=== PATIENT | male | born 1955 | race Caucasian/White ===

== ENCOUNTER 2018-01-03 18:27 | Emergency (ER) | payer OTHER ==
[~2018-01-03] VITALS: Ht 180.3 cm; Wt 79.8 kg
[~2018-01-03 18:27] MED LIST: ATORVASTATIN CA20 MG PO; BAYER PM CAPLE1 EACH PO; EFFIENT10 MG PO; KEFLEX500 MG PO; TRAMADOL-ACETAMI1 EA PO
[2018-01-03] MEDS ORDERED: MORPHINE SULFATE 2 MG/ML SYR IV STA (18:34)
[2018-01-03] MEDS ORDERED: ONDANSETRON HCL INJ 2 MG/ML VIAL IV STA (18:34)
[2018-01-03] MEDS ORDERED: LORAZEPAM INJ 2 MG/ML VIAL IV ONE (18:45)
[2018-01-03] MEDS ORDERED: SODIUM CHLORIDE 0.9% 1000ML 1,000 ML IV SCH (18:45)
[2018-01-03 18:51] LABS: BASOPHILS # (AUTO) 0.1 (0.0-0.1); BASOPHILS % 0.8 % (0.0-1.0); EOSINOPHILS # (AUTO) 0.3 (0.0-0.4); EOSINOPHILS % 3.3 % (0.0-6.0); HEMATOCRIT 43.7 % (38.2-49.6); HEMOGLOBIN 15.4 g/dL (14.0-18.0); LYMPHOCYTES # (AUTO) 1.8 (1.0-3.2); LYMPHOCYTES % 21.6 % (18.0-39.1); MEAN CORPUSCULAR HEMOGLOBIN 35.4 pg (28-32); MEAN CORPUSCULAR HGB CONC 35.2 g/dL (31-35); MEAN CORPUSCULAR VOLUME 100.5 fL (81-99); MONOCYTES # (AUTO) 0.9 (0.2-0.8); MONOCYTES % 10.8 % (4.4-11.3); NEUTROPHILS # (AUTO) 5.3 (2.1-6.9); NEUTROPHILS % 63.1 % (38.7-80.0); PLATELET COUNT 217 x10e3/uL (140-360); RED BLOOD COUNT 4.35 x10e6/uL (4.3-5.7); RED CELL DISTRIBUTION WIDTH 12.8 % (11.7-14.4)
[2018-01-03 18:57] LABS: CLARITY,URINE CLOUDY (CLEAR); COLOR,URINE YELLOW (YELLOW); LEUKOCYTE ESTERASE ,URINE NEGATIVE (NEGATIVE); NITRITE,URINE NEGATIVE (NEGATIVE)
[2018-01-03 18:58] LABS: BILIRUBIN,URINE NEGATIVE (NEGATIVE); KETONES,URINE NEGATIVE (NEGATIVE); PROTEIN,URINE DIPSTICK TRACE (NEGATIVE); URINE UROBILINOGEN 0.2 mg/dL (0.2 - 1)
[2018-01-03 19:13] LABS: ALANINE AMINOTRANSFERASE 48 IU/L (0-55); ALBUMIN 4.2 g/dL (3.5-5.0); ALBUMIN/GLOBULIN RATIO 1.6 (0.8-2.0); ALKALINE PHOSPHATASE 93 IU/L (40-150); BLOOD UREA NITROGEN 18 mg/dL (7-26); BUN/CREATININE RATIO 18 (6-25); CALCIUM 9.9 mg/dL (8.4-10.2); CARBON DIOXIDE 26 mmol/L (22-29); CHLORIDE 106 mmol/L (98-107); CREATININE, SERUM 0.99 mg/dL (0.72-1.25); EST GLOMERULAR FILTRATION RATE > 60 ML/MIN (60-); GLUCOSE 102 mg/dL (74-118); SODIUM 140 mmol/L (136-145)
[2018-01-03 19:15] LABS: EPITHELIAL CELLS,URINE RARE /LPF; RBC,URINE >50 /HPF (0-5)
--- NOTE | 2018-01-03 20:39 | Diagnostic Imaging Report ---
EXAM: CT ABDOMEN/PELVIS WO DATE: 01/03/2018 6:34 PM INDICATION: \S\STONE PROTOCOL/LEFT FLANK \S\[id number] \S\192 COMPARISON: 10/16/2017 TECHNIQUE: The abdomen and pelvis were scanned using a multidetector helical scanner. Coronal and sagittal reformations were obtained. Routine protocol performed. IV Contrast: None ml Isovue 300/370 FINDINGS: Lack of IV contrast decreases sensitivity in evaluating abdominal and pelvic organs. LOWER THORAX: No consolidations LIVER/BILIARY: No masses. No ductal dilatation. GALLBLADDER: Unremarkable SPLEEN: Unremarkable PANCREAS: Unremarkable ADRENALS: No nodules KIDNEYS: Stable subcentimeter exophytic right superior renal hypodensity. There is a 4 mm left UVJ calculus with mild hydroureteronephrosis and perinephric/periureteral inflammatory changes. Two 1-2 mm left inferior renal calculi and other scattered punctate left renal calculi. GI TRACT: No wall thickening or evidence of obstruction. Normal appendix. VESSELS: Moderate atherosclerotic calcifications PERITONEUM/RETROPERITONEUM: No free air or fluid LYMPH NODES: No lymphadenopathy REPRODUCTIVE ORGANS/BLADDER: Mild circumferential bladder wall thickening. BONES: Multilevel degenerative changes. IMPRESSION: 1. Left UVJ calculus (4 mm) with mild hydroureteronephrosis and inflammatory changes. 2. Mild circumferential bladder wall thickening which may be related to underdistention or cystitis. Correlate with urinalysis. Signed by: Dr Marsha Torres MD on 01/03/2018 8:35 PM
== END 2018-01-03 22:11 | disposition home or self-care (01) ==
LOC: ER 18:27
DX: R10.9 Unspecified abdominal pain (principal); R11.0 Nausea; N30.01 Acute cystitis with hematuria; N20.1 Calculus of ureter; I10 Essential (primary) hypertension; E78.5 Hyperlipidemia, unspecified; Z95.5 Presence of coronary angioplasty implant and graft
CPT/HCPCS: 36415; 74176; 80053; 81001; 85025; 99284; J2060; J2270; J2405; J7030

== ENCOUNTER 2019-01-12 17:47 | Observation (INO) | payer OTHER ==
[~2019-01-12] VITALS: Ht 181.6 cm; Wt 76.7 kg
--- OUTSIDE RECORDS SUMMARY | 2019-01-12 17:52 | XMS REPORT | Continuity of Care Document ---
Author Author [facility] Interface Address Unknown Phone Unavailable Problems Problem Status Onset Date Classification Date Reported Comments Source Wheezing 11/03/2018 Diagnosis 11/04/2018 [facility] Lower respiratory tract infection 11/03/2018 Diagnosis 11/04/2018 [facility] Elevated blood-pressure reading without diagnosis of hypertension 11/03/2018 Diagnosis 11/04/2018 [facility] Body mass index 25-29 - overweight 11/03/2018 Diagnosis 11/04/2018 [facility] Immunization due 11/03/2018 Diagnosis 11/04/2018 [facility] Smoker 11/03/2018 Diagnosis 11/04/2018 [facility] Feeling feverish 11/03/2018 Diagnosis 11/04/2018 [facility] Ureteral stone Active 10/17/2015 Problem 01/04/2018 [facility] Chest pain Active 06/18/2014 Problem 01/04/2018 [facility] Medications Medication Details Route Status Patient Instructions Ordering Provider Order Date Source Prasugrel Hcl (Effient) 10 Mg Tablet, 10 Mg Oral Daily Active 03/04/2017 [facility] Tramadol/Acetaminophen (Tramadol-Acetaminophn 37.5-325) 1 Ea Tab, 1 Tab Oral As Needed for Bladder Spasms Active Omid 10/18/2015 [facility] Aspirin/Diphenhydramine Citrat (Jahaira Pm Caplet) 1 Each Tablet Daily Active [facility] Atorvastatin Calcium 20 Mg Tablet Daily Active [facility] 200 ACTUAT Albuterol 0.09 MG/ACTUAT Metered Dose Inhaler albuterol sulfate HFA 90 mcg/actuation aerosol inhaler Inhale 2 puffs every 4 hours by inhalation route as needed. Active [facility] Aspir-81 Aspir-81 Active [facility] atorvastatin 80 MG Oral Tablet atorvastatin 80 mg tablet Active [facility] Azithromycin 250 MG Oral Tablet azithromycin 250 mg tablet TAKE 2 TABLETS (500 MG) BY ORAL ROUTE ONCE DAILY FOR 1 DAY THEN 1 TABLET (250 MG) BY ORAL ROUTE ONCE DAILY FOR 4 DAYS Active [facility] benzonatate 200 MG Oral Capsule benzonatate 200 mg capsule Take 1 capsule 3 times a day by oral route as needed. Active [facility] Metoprolol Tartrate 25 MG Oral Tablet metoprolol tartrate 25 mg tablet TK 1/2 T PO QD Active [facility] Allergies, Adverse Reactions, Alerts Substance Category Reaction Severity Reaction type Status Date Reported Comments Source Immunizations Immunization Date Given Site Status Last Updated Comments Source Results Order Name Results Value Reference Range Date Interpretation Comments Source PEF 250 11/03/2018 [facility] Percent Predicted Value 34 % 11/03/2018 [facility] Influenza A negative 11/03/2018 [facility] Influenza B negative 11/03/2018 [facility] Automated blood basophil count (count/volume) Automated blood basophil count (count/volume) 0.1 0.0 - 0.1 01/03/2018 [facility] Automated blood basophil count as percentage of total leukocytes Automated blood basophil count as percentage of total leukocytes 0.8 0.0 - 1.0 01/03/2018 [facility] Automated blood eosinophil count Automated blood eosinophil count 0.3 0.0 - 0.4 01/03/2018 [facility] Automated blood eosinophil count as percentage of total leukocytes Automated blood eosinophil count as percentage of total leukocytes 3.3 0.0 - 6.0 01/03/2018 [facility] Automated blood hematocrit (volume fraction) Automated blood hematocrit (volume fraction) 43.7 38.2 - 49.6 01/03/2018 [facility] Automated blood lymphocyte count as percentage ot total leukocytes Automated blood lymphocyte count as percentage ot total leukocytes 21.6 18.0 - 39.1 01/03/2018 [facility] Automated blood monocyte count as percentage of total leukocytes Automated blood monocyte count as percentage of total leukocytes 10.8 4.4 - 11.3 01/03/2018 [facility] Automated blood neutrophil count Automated blood neutrophil count 5.3 2.1 - 6.9 01/03/2018 [facility] Automated blood platelet count (count/volume) Automated blood platelet count (count/volume) 217 140 - 360 01/03/2018 [facility] Automated blood segmented neutrophil count as percentage of total leukocytes Automated blood segmented neutrophil count as percentage of total leukocytes 63.1 38.7 - 80.0 01/03/2018 [facility] Automated erythrocyte mean corpuscular hemoglobin (mass per erythrocyte) Automated erythrocyte mean corpuscular hemoglobin (mass per erythrocyte) 35.4 28 - 32 01/03/2018 [facility] Automated erythrocyte mean corpuscular hemoglobin concentration measurement (mass/volume) Automated erythrocyte mean corpuscular hemoglobin concentration measurement (mass/volume) 35.2 31 - 35 01/03/2018 [facility] Automated erythrocyte mean corpuscular volume Automated erythrocyte mean corpuscular volume 100.5 81 - 99 01/03/2018 [facility] Automated urine sediment leukocyte count by microscopy (number/high power field) Automated urine sediment leukocyte count by microscopy (number/high power field) NONE 0 - 5 01/03/2018 [facility] Bacteria detection in urine sediment by light microscopy Bacteria detection in urine sediment by light microscopy NONE NONE 01/03/2018 [facility] Blood erythrocytes automated count (number/volume) Blood erythrocytes automated count (number/volume) 4.35 4.3 - 5.7 01/03/2018 [facility] Blood hemoglobin measurement (moles/volume) Blood hemoglobin measurement (moles/volume) 15.4 14.0 - 18.0 01/03/2018 [facility] Blood leukocytes automated count (number/volume) Blood leukocytes automated count (number/volume) 8.39 4.8 - 10.8 01/03/2018 [facility] Blood lymphocytes count (number/volume) Blood lymphocytes count (number/volume) 1.8 1.0 - 3.2 01/03/2018 [facility] Blood monocytes automated count (number/volume) Blood monocytes automated count (number/volume) 0.9 0.2 - 0.8 01/03/2018 [facility] Epithelial cells detection in urine sediment by light microscopy Epithelial cells detection in urine sediment by light microscopy RARE NONE 01/03/2018 [facility] Erythrocytes detection in urine sediment by light microscopy Erythrocytes detection in urine sediment by light microscopy null 0 - 5 01/03/2018 [facility] Estimated glomerular filtration rate (GFR) determination Estimated glomerular filtration rate (GFR) determination null 60 01/03/2018 [facility] Glucose measurement Glucose measurement 102 74 - 118 01/03/2018 [facility] Plasma globulin measurement (mass/volume) Plasma globulin measurement (mass/volume) 2.7 2.3 - 3.5 01/03/2018 [facility] Serum or plasma alanine aminotransferase measurement (enzymatic activity/volume) Serum or plasma alanine aminotransferase measurement (enzymatic activity/volume) 48 0 - 55 01/03/2018 [facility] Serum or plasma albumin measurement (mass/volume) Serum or plasma albumin measurement (mass/volume) 4.2 3.5 - 5.0 01/03/2018 [facility] Serum or plasma albumin/globulin mass ratio Serum or plasma albumin/globulin mass ratio 1.6 0.8 - 2.0 01/03/2018 [facility] Serum or plasma alkaline phosphatase measurement (enzymatic activity/volume) Serum or plasma alkaline phosphatase measurement (enzymatic activity/volume) 93 40 - 150 01/03/2018 [facility] Serum or plasma anion gap Serum or plasma anion gap 12.0 8 - 16 01/03/2018 [facility] Serum or plasma calcium measurement (mass/volume) Serum or plasma calcium measurement (mass/volume) 9.9 8.4 - 10.2 01/03/2018 [facility] Serum or plasma carbon dioxide, total measurement (moles/volume) Serum or plasma carbon dioxide, total measurement (moles/volume) 26 22 - 29 01/03/2018 [facility] Serum or plasma chloride measurement (moles/volume) Serum or plasma chloride measurement (moles/volume) 106 98 - 107 01/03/2018 [facility] Serum or plasma creatinine measurement (mass/volume) Serum or plasma creatinine measurement (mass/volume) 0.99 0.72 - 1.25 01/03/2018 [facility] Serum or plasma potassium measurement (moles/volume) Serum or plasma potassium measurement (moles/volume) 4.0 3.5 - 5.1 01/03/2018 [facility] Serum or plasma protein measurement (mass/volume) Serum or plasma protein measurement (mass/volume) 6.9 6.5 - 8.1 01/03/2018 [facility] Serum or plasma sodium measurement (moles/volume) Serum or plasma sodium measurement (moles/volume) 140 136 - 145 01/03/2018 [facility] Serum or plasma total bilirubin measurement (mass/volume) Serum or plasma total bilirubin measurement (mass/volume) 0.7 0.2 - 1.2 01/03/2018 [facility] Serum or plasma urea nitrogen measurement (mass/volume) Serum or plasma urea nitrogen measurement (mass/volume) 18 7 - 26 01/03/2018 [facility] Serum or plasma urea nitrogen/creatinine mass ratio Serum or plasma urea nitrogen/creatinine mass ratio 18 6 - 25 01/03/2018 [facility] Specific gravity of Urine by Test strip Specific gravity of Urine by Test strip 1.025 1.010 - 1.025 01/03/2018 [facility] Urine clarity Urine clarity CLOUDY CLEAR 01/03/2018 [facility] Urine color determination Urine color determination YELLOW YELLOW 01/03/2018 [facility] Urine erythrocytes detection Urine erythrocytes detection 4+ NEGATIVE 01/03/2018 [facility] Urine glucose detection Urine glucose detection NEGATIVE NEGATIVE 01/03/2018 [facility] Urine ketones detection by automated test strip Urine ketones detection by automated test strip NEGATIVE NEGATIVE 01/03/2018 [facility] Urine leukocyte esterase detection by dipstick Urine leukocyte esterase detection by dipstick NEGATIVE NEGATIVE 01/03/2018 [facility] Urine nitrite detection Urine nitrite detection NEGATIVE NEGATIVE 01/03/2018 [facility] Urine pH measurement by automated test strip Urine pH measurement by automated test strip 6 5 - 7 01/03/2018 [facility] Urine protein measurement by test strip (mass/volume) Urine protein measurement by test strip (mass/volume) TRACE NEGATIVE 01/03/2018 [facility] Urine total bilirubin measurement (mass/volume) Urine total bilirubin measurement (mass/volume) NEGATIVE NEGATIVE 01/03/2018 [facility] Urine urobilinogen measurement by test strip (mass/volume) Urine urobilinogen measurement by test strip (mass/volume) 0.2 0.2 - 1 01/03/2018 [facility] Red Cell Distribution Width 12.8 11.7 - 14.4 01/03/2018 [facility] IM GRANULOCYTES % 0.4 0.0 - 1.0 01/03/2018 [facility] Absolute Immature Granulocyte (auto 0.03 0 - 0.1 01/03/2018 [facility] Aspartate Amino Transf (AST/SGOT) 33 5 - 34 01/03/2018 [facility] Vital Signs Vital Sign Value Date Comments Source Diastolic (mm Hg) 86 11/03/2018 [facility] Height 71 11/03/2018 [facility] Systolic (mm Hg) 120 11/03/2018 [facility] Weight 185 11/03/2018 [facility] Encounters Location Location Details Encounter Type Encounter Number Reason For Visit Attending Provider ADM Date DC Date Status Source Departed Emergency Room [id number] LILLIE SOUTH MD 01/03/2018 01/03/2018 [facility] [place] - [facility] - [id number] Caicedo-C: [address] [place] [address], Ph. [id number] [facility] 11/03/2018 [facility] [place] [facility] - [id number] Caicedo-C: [address] [place] [address], Ph. [id number] [facility] 11/03/2018 [facility] [place] [facility] - [id number] Sarah Lai, GEODETIC SURVEYOR TECHNOLOGIST-C: [address] [facility] [place] [address], Ph. [id number] [facility] 11/03/2018 [facility] [place] [facility] - [id number] Armida Rodriguez, GEODETIC SURVEYOR TECHNOLOGIST-C: [address] [place] [address], Ph. [phone] [id number] [facility] 11/03/2018 [facility] Procedures Procedure Code Date Perfomer Comments Source CT of abdomen and pelvis without contrast [id number] 01/03/2018 [facility] Procedure on Heart [facility]
--- OUTSIDE RECORDS SUMMARY | 2019-01-12 17:52 | XMS REPORT ---
Author Author [facility] Address Unknown Phone Unavailable Care Team Providers Care Fourdrinier Wire Weaver Name Role Phone Avtar SOUTH Unavailable Unavailable Problems This patient has no known problems. Allergies, Adverse Reactions, Alerts This patient has no known allergies or adverse reactions. Medications This patient has no known medications. Results Test Description Test Time Test Comments Text Results Atomic Results Result Comments CT ABDOMEN/PELVIS WO [place] [address] Patient Name: CAIT WOODWARD MR #: [id number] : 1955 Age/Sex: 62/M Req #: [id number] Adm Physician: Ordered by: NARCISO PENDLETON MD Report #: [id number] Location: ER Room/Bed: Procedure: [id number] CT/CT ABDOMEN/PELVIS WO Exam Date: 01/03/18 Exam Time: 1923 REPORT STATUS: Signed EXAM: CT ABDOMEN/PELVIS WO DATE: 01/03/2018 6:34 PM INDICATION: S STONE PROTOCOL/LEFT FLANK S [id number] S 1923 COMPARISON: 10/16/2017 TECHNIQUE: The abdomen and pelvis were scanned using a multidetector helical scanner. Coronal and sagittal reformations were obtained. Routine protocol performed. IV Contrast: None ml Isovue 300/370 FINDINGS: Lack of IV contrast decreases sensitivity in evaluating abdominal and pelvic organs. LOWER THORAX: No consolidations LIVER/BILIARY: No masses. No ductal dilatation. GALLBLADDER: Unremarkable SPLEEN: Unremarkable PANCREAS: Unremarkable ADRENALS: No nodules KIDNEYS: Stable subcentimeter exophytic right superior renal hypodensity. There is a 4 mm left UVJ calculus with mild hydroureteronephrosis and perinephric/periureteral inflammatory changes. Two 1-2 mm left inferior renal calculi and other scattered punctate left renal calculi. GI TRACT: No wall thickening or evidence of obstruction. Normal appendix. VESSELS: Moderate atherosclerotic calcifications PERITONEUM/RETROPERITONEUM: No free air or fluid LYMPH NODES: No lymphadenopathy REPRODUCTIVE ORGANS/BLADDER: Mild circumferential bladder wall thickening. BONES: Multilevel degenerative changes. IMPRESSION: 1. Left UVJ calculus (4 mm) with mild hydroureteronephrosis and inflammatory changes. 2. Mild circumferential bladder wall thickening which may be related to underdistention or cystitis. Correlate with urinalysis. Signed by: Dr Jovany Torres MD on 01/03/2018 8:35 PM Dictated By: JOVANY TORRES MD 34 Transcribed By: ENEDINA on 01/03/182034 COPY TO: NARCISO PENDLETON MD
--- OUTSIDE RECORDS SUMMARY | 2019-01-12 17:52 | XMS REPORT | Encounter Summary ---
Author Organization Unknown Address [address] [place] [address] Phone [phone] Reason for Visit Medical Complaint Instructions None recorded. Discussion Note: None recorded. Patient educational handouts: No information available. Plan of Care Reminders Provider Appointments None recorded. Lab None recorded. Referral None recorded. Procedures None recorded. Surgeries None recorded. Imaging None recorded. Medications Name Start Date albuterol sulfate HFA 90 mcg/actuation aerosol inhaler Inhale 2 puffs every 4 hours by inhalation route as needed. Aspir-81 atorvastatin 80 mg tablet azithromycin 250 mg tablet TAKE 2 TABLETS (500 MG) BY ORAL ROUTE ONCE DAILY FOR 1 DAY THEN 1 TABLET (250 MG) BY ORAL ROUTE ONCE DAILY FOR 4 DAYS benzonatate 200 mg capsule Take 1 capsule 3 times a day by oral route as needed. metoprolol tartrate 25 mg tablet TK 1/2 T PO QD Medications Administered None recorded. Vitals None recorded. Lab Results Date Name Specimen Result Interpretation Description Value Range Status Address Peak Flow Pef 250 [facility]: [address] [place] [address] Percent Predicted Value 34% [facility]: [address] [place] [address] Rapid Flu (A+B) Influenza a negative [facility]: [address] [place] [address] Influenza B negative [facility]: [address] [place] [address] Allergies Code Code System Name Reaction Severity Status Onset NKDA Problems No Known Problems Procedures Date Name Performed by Procedure on Heart Information not available Vaccine List None recorded. Social History Smoking Status Current Some Day Smoker Past Encounters 11/03/2018 Lower Respiratory Tract Infection; Wheezing; Feeling Feverish; Smoker; Elevated Blood-pressure Reading without Diagnosis of Hypertension; Body Mass Index 25-29 - Overweight; Immunization Due [facility]: [address] [place] [address], Ph. 11/03/2018 [facility]: [address] [place] [address], Ph. History of Present Illness None recorded. Review of Systems Basic Reported By: Patient Physical Exam Adult Basic, Adult Male Complete Reported By: Patient
--- OUTSIDE RECORDS SUMMARY | 2019-01-12 17:52 | XMS REPORT | Encounter Summary ---
Author Organization Unknown Address [address] [place] [id number] Phone [phone] Reason for Visit Medical Complaint Instructions 1. Lower respiratory tract infection azithromycin 250 mg tablet benzonatate 200 mg capsule 2. Wheezing albuterol sulfate HFA 90 mcg/actuation aerosol inhaler wheezing or bronchoconstriction: care instructions peak flow 3. Feeling feverish rapid flu (A+B) 4. Smoker stopping smoking: care instructions 5. Elevated blood-pressure reading without diagnosis of hypertension elevated blood pressure: care instructions 6. Body mass index 25-29 - overweight A healthy lifestyle: care instructions 7. Immunization due Discussion Note: None recorded. Plan of Care Patient Instructions See care instructions provided. Reminders Provider Appointments None recorded. Lab Rapid Flu (A+B) 11/03/2018 [facility] Referral None recorded. Procedures None recorded. Surgeries [...] PO QD Medications Administered None recorded. Vitals Height Weight BMI Blood Pressure 5 ft 11 in 185 lbs 25.8 kg/m2 120/86 mm[Hg] Lab Results Date Name Specimen Result Interpretation Description Value Range Status Address Peak Flow Pef 250 [facility]: [address] [place] [address] Percent Predicted Value 34% [facility]: [address] [place] [address] Rapid Flu (A+B) Influenza a negative [facility]: [address] [place] [address] Influenza B negative [facility]: [address] [place] [address] Allergies Code Code System Name Reaction Severity Status Onset NKDA Problems No Known Problems Procedures Date Name Performed by Procedure on Heart Information not available Vaccine List None recorded. Social History Smoking Status Current Some Day Smoker Past Encounters 11/03/2018 Lower Respiratory Tract Infection; Wheezing; Feeling Feverish; Smoker; Elevated Blood-pressure Reading without Diagnosis of Hypertension; Body Mass Index 25-29 - Overweight; Immunization Due Armida Rodriguez [facility]: [address] [place] [address], Ph. 11/03/2018 Armida Rodriguez [facility]: [address] [place] [address], Ph. History of Present Illness [id number] Reported By: Patient HPI: Location: head/sinuses, chest. Quality: productive cough, nasal/sinus congestion, dry cough. Duration: 2days. Context: no sick contacts, no foreign travel, non- smoker. Associated Symptoms: no sputum production, no shortness of breath, no change in number of pillows needed to sleep at night, no sweats, no significant weight gain, no significant weight loss, no morning cough, no sore throat, no vomiting, no diarrhea, no rash, no nausea, no fever, no muscle aches, no headache, wheezing Review of Systems:ROS as noted in the HPI Review of Systems Basic Reported By: Patient Physical Exam Adult Basic, Adult Male Complete Reported By: Patient Constitutional: General Appearance: healthy-appearing, well-nourished, well-developed, overweight. Level of Distress: NAD. Ambulation: ambulating normally Psychiatric: Mental Status: active and alert. Orientation: to time, to place, to person Eyes: Lids and Conjunctivae: non-injected, no discharge, no pallor Hzf-Emtf-Rqwev-Throat: Ears: no lesions on external ear, no outer ear tenderness, EACs clear, TM opacified. Hearing: no hearing loss. Nose: no lesions on external nose, nares patent, no septal deviation, nasal passages clear, no sinus tenderness, nasal discharge--rhinorrhea, post nasal drip. Lips, Teeth, and Gums: no mouth or lip ulcers, no bleeding gums, normal dentition. Oropharynx: moist mucous membranes, no erythema, no exudates, tonsils not enlarged Lungs: Respiratory effort: no dyspnea, no tachypnea, no use of accessory muscles, no intercostal retractions. Auscultation: expiratory wheezing Cardiovascular: Heart Auscultation: RRR, no murmurs
[2019-01-12 18:37] LABS: BILIRUBIN,URINE NEGATIVE (NEGATIVE); CLARITY,URINE SL CLOUDY (CLEAR); COLOR,URINE YELLOW (YELLOW); KETONES,URINE NEGATIVE (NEGATIVE); LEUKOCYTE ESTERASE ,URINE NEGATIVE (NEGATIVE); NITRITE,URINE NEGATIVE (NEGATIVE); PROTEIN,URINE DIPSTICK TRACE (NEGATIVE); URINE UROBILINOGEN 0.2 mg/dL (0.2 - 1)
[2019-01-12 18:48] LABS: WBC,URINE (MAN) >50 /HPF (0-5)
[2019-01-12 18:49] LABS: BACTERIA,URINE MANY /HPF; EPITHELIAL CELLS,URINE MODERATE /LPF; RBC,URINE >50 /HPF (0-5)
[2019-01-12] MEDS ORDERED: ATORVASTATIN CA80 MG PO (19:07)
[2019-01-12] MEDS ORDERED: LOPRESSOR25 MG PO (19:07)
--- NOTE | 2019-01-12 19:19 | Diagnostic Imaging Report ---
EXAM: CT of the abdomen and pelvis WITHOUT contrast HISTORY: lft flank pain KSP, left lower abdominal pain, history of kidney stones COMPARISON: CT abdomen and pelvis January 03, 2018 TECHNIQUE: The abdomen and pelvis were scanned utilizing a multidetector helical scanner. Coronal and sagittal reformats are available. PROTOCOL: Renal colic IV CONTRAST: None, which limits sensitivity and specificity of evaluation of the soft tissues and vascular structures. ORAL CONTRAST: None, which limits sensitivity and specificity of evaluation of the bowel. RADIATION DOSE: Total DLP: 375.15 mGy*cm Estimated effective dose: (DLP x 0.015 x size factor) Dose modulation, iterative reconstruction, and/or weight based adjustment of the mA/kV was utilized to reduce the radiation dose to as low as reasonably achievable. COMPLICATIONS: None FINDINGS: LOWER THORAX: Unremarkable. HEPATOBILIARY: No definite focal hepatic lesions. No biliary ductal dilatation. The gallbladder is unremarkable. SPLEEN: No splenomegaly. PANCREAS: No focal masses or ductal dilatation. ADRENALS: No adrenal nodule. KIDNEYS/URETERS: Right: * No hydronephrosis. * A 2 mm calcified stone near the inferior pole. Left: * A punctate nonobstructing calcification at the interpolar region. * A 4 mm nonobstructing calcification near the inferior pole. * A 3 mm nonspecific calcification near the inferior pole. * Mild hydroureteronephrosis to the level of the pelvic inlet with a 7 mm obstructing stone. PELVIC ORGANS/BLADDER: The visualized pelvic organs appear unremarkable. PERITONEUM / RETROPERITONEUM: No free air or fluid. GI TRACT: On limited evaluation of the gastrointestinal tract, no dilation or wall thickening identified. The appendix appears normal. The stomach is decompressed, which limits evaluation. LYMPH NODES: No pathologically enlarged lymph nodes. VESSELS: Diffuse scattered atherosclerotic vascular calcifications. BONES: No aggressive osseous lesion or acute fracture. Stable 7 mm nonaggressive chronic density in the left femoral head, compatible with a bone island. Scattered degenerative changes. SOFT TISSUES: Unremarkable. IMPRESSION: 1. A 7 mm left ureteral stone resulting in mild hydroureteronephrosis. 2. Bilateral nonobstructing subcentimeter renal calculi. Signed by: Dr. Blayne Sharif D.O., M.M.M. on 01/12/2019 7:16 PM
[2019-01-12] MEDS ORDERED: ASPIRIN325 MG PO (20:05)
[2019-01-12] MEDS ORDERED: SODIUM CHLORIDE FLUSH 10 ML SYR INJ PRN (20:15)
[2019-01-12] MEDS ORDERED: CEFTRIAXONE SOD 1 GM/NS 50 ML 50 ML IV SCH (20:15)
[2019-01-12 20:18] LABS: BASOPHILS % 0.4 % (0.0-1.0); EOSINOPHILS # (AUTO) 0.3 (0.0-0.4); EOSINOPHILS % 2.5 % (0.0-6.0); HEMATOCRIT 42.8 % (38.2-49.6); HEMOGLOBIN 15.2 g/dL (14.0-18.0); LYMPHOCYTES # (AUTO) 1.7 (1.0-3.2); LYMPHOCYTES % 15.4 % (18.0-39.1); MEAN CORPUSCULAR HEMOGLOBIN 35.8 pg (28-32); MEAN CORPUSCULAR HGB CONC 35.5 g/dL (31-35); MEAN CORPUSCULAR VOLUME 100.7 fL (81-99); MONOCYTES # (AUTO) 1.2 (0.2-0.8); NEUTROPHILS # (AUTO) 7.5 (2.1-6.9); NEUTROPHILS % 70.4 % (38.7-80.0); PLATELET COUNT 219 x10e3/uL (140-360); RED BLOOD COUNT 4.25 x10e6/uL (4.3-5.7); RED CELL DISTRIBUTION WIDTH 12.9 % (11.7-14.4)
[2019-01-12 20:30] LABS: ANION GAP 10.8 mmol/L (8-16); BLOOD UREA NITROGEN 18 mg/dL (7-26); BUN/CREATININE RATIO 19 (6-25); CALCIUM 9.7 mg/dL (8.4-10.2); CARBON DIOXIDE 27 mmol/L (22-29); CHLORIDE 102 mmol/L (98-107); CREATININE, SERUM 0.97 mg/dL (0.72-1.25); EST GLOMERULAR FILTRATION RATE > 60 ML/MIN (60-); GLUCOSE 87 mg/dL (74-118); POTASSIUM 3.8 mmol/L (3.5-5.1); SODIUM 136 mmol/L (136-145)
[2019-01-12] MEDS: HYDROMORPHONE 2MG/ML 2 MG/ML ML IV PRN (21:44)
[2019-01-12] MEDS: ONDANSETRON HCL INJ 2MG/ML 2ML 2 MG/ML VIAL IV PRN (21:45)
[2019-01-13] VITALS (8 sets, daily range): BP systolic 118–135; BP diastolic 65–73
--- NOTE | 2019-01-13 01:31 | NUR ---
PATIENT RECEIVED FROM EMERGENCY DEPARTMENT PER STRETCHER AT 0108. HE'S ALERT AND ORIENTED X3, WHEEZING HEARD ON LUNG SOUND. HE C/O MILD PAIN BUT REFUSED PAIN MEDICATION WHEN OFFER. NO EDEMA NOTED TO THE EXTREMITIES, SMALL RED AREA NOTED TO THE LEFT LEG. PATIENT ORIENTED TO SURROUNDINGS, CALL LIGHT WITHIN EASY REACH AND HE'S INSTRUCTED TO NOTIFY THE NURSE REGARDING PAIN MANAGEMENT.
--- NOTE | 2019-01-13 04:48 | NUR ---
PATIENT IS SOUNDLY ASLEEP, NO DISTRESS OBSERVED. CALL LIGHT WITHIN EASY REACH, HE'S INSTRUCTED TO CALL FOR ASSISTANCE NEEDED.
[2019-01-13] MEDS ORDERED: DEXTROSE 5%/0.45% SOD CHL 1,000 ML IV ONE ×2 (07:45→18:00)
[2019-01-13] MEDS ORDERED: CEFAZOLIN SOD 1 GM/NS 50ML 50 ML IV SCH (08:00)
--- NOTE | 2019-01-13 08:14 | NUR ---
Patient resting in bed, Alert with no distress, Dr Rebecca Anne had rounds, consent signed for procedure by patient
[2019-01-13] MEDS: CEFTRIAXONE SOD 1 GM/NS 50 ML 50 ML IV SCH ×2 (08:34→21:00)
--- NOTE | 2019-01-13 13:20 | NUR ---
patient off the unit for procedure
[2019-01-13] MEDS ORDERED: FENTANYL CITRATE/PF 100MCG/2 ML INJ ONE (13:47)
[2019-01-13] MEDS ORDERED: MIDAZOLAM HCL 2 MG/2 ML VIAL ONE (13:47)
[2019-01-13] MEDS ORDERED: ACETAMINOPHEN 325 MG TAB PO PRN (14:30)
--- NOTE | 2019-01-13 15:26 | Consultation ---
DATE OF CONSULTATION: 01/13/2019 REASON FOR CONSULTATION: Renal calculi. HISTORY: This is a 63-year-old male, well known to me who had a stone removed in 2016. At that time, it was the only stone present in the kidney. He states that over the last three days, he has had pain on the left flank radiating to the left lower quadrant, but over the last 24 hours, the pain has not progressing. They had gotten worse. He had developed nausea and has not vomited and came to the emergency room where a CT scan shows that he got a 7 mm stone in the two pelvis by S1, L5. This is causing moderate degree of hydroureteronephrosis, but the pain is severe and I discussed with the patient that the stone is 7 mm in size pass 12% to 14% of the time and we do not know how long it would take for that stone to pass. Therefore, the patient has opted to have treatment like he had back in 2016. MEDICAL HISTORY: High blood pressure. High cholesterol. PAST SURGICAL HISTORY: Essentially ureteroscopy in 2016. History of kidney stones. SOCIAL HISTORY: , sexually active. MEDICATIONS: Propranolol and simvastatin. Urological examination, bilateral descended testicles. No hernias. Prostate approximately 25 g to 30 g, soft. No inguinal hernias are palpable. The patient did have pain on the left flank radiating to the area of the left lower quadrant. IMPRESSION: A 7 mm stones in the left ureter at L5, S1, left side, and multiple other stones, two on the left and one on the right that are 1-3 mm. RECOMMENDATION: The patient and I agreed to do a cystoscopy and placement of double-J, possible ureteroscopy, laser lithotripsy and stone extraction. He has had these treatment before. Understands the complications and the outcome. MD INGRID Snell/MODL /[id number]
[2019-01-13] MEDS ORDERED: IOPAMIDOL 610MG/1ML 300 MG/ML VIAL IV ONE (16:35)
[2019-01-13] MEDS ORDERED: BELLADONNA/OPIUM 60 MG SUPP PR ONE (16:35)
[2019-01-13] MEDS ORDERED: KETOROLAC TROMETHAMINE 30 MG/ML VIAL IM PRN (18:00)
[2019-01-13] MEDS ORDERED: SEVOFLURANE INHAL SOLN 250 ML PEN BTL ONE (18:18)
[2019-01-13] MEDS ORDERED: NEOSTIGMINE 5 MG/5ML SYR ONE (18:18)
[2019-01-13] MEDS ORDERED: ONDANSETRON HCL INJ 2MG/ML 2ML 2 MG/ML VIAL ONE (18:18)
[2019-01-13] MEDS ORDERED: LIDOCAINE HCL 2% LOCAL INJ 5 ML SDV VIAL INJ ONE (18:18)
[2019-01-13] MEDS ORDERED: DEXAMETHASONE SOD PHOS INJ 4 MG/ML VIAL ONE (18:18)
[2019-01-13] MEDS ORDERED: ROCURONIUM BROMIDE 10 MG/ML 5ML VIAL ONE (18:18)
[2019-01-13] MEDS ORDERED: GLYCOPYRROLATE INJ 1MG/ 5 ML SYR ONE (18:18)
[2019-01-13] MEDS ORDERED: PROPOFOL IV EMULSION 10 MG/ML 20 ML VIAL ONE (18:18)
--- NOTE | 2019-01-13 19:15 | NUR ---
received report from day nurse. patient is resting comfortably in bed. denies pain or discomfort. bed is in lowest position and call griggs is within reach. will continue to monitor patient.
[2019-01-13] MEDS ORDERED: SODIUM CHLORIDE 0.9% 250ML 0 ML ONE (19:48)
--- NOTE | 2019-01-13 22:22 | History and Physical ---
CHIEF COMPLAINT: Left flank pain. HISTORY OF PRESENT ILLNESS: A 63-year-old male with known history of nephrolithiasis in the past. He has been following up with Dr. Anne, Urology in the past, now presents with left-sided flank pain, it began yesterday. He denies any hematuria or dysuria. The patient came into the ED due to worsening pain. No fever at home, chest pain, or palpitations. While here, imaging study was consistent with a 7 mm left ureteral stone with mild hydroureteronephrosis seen. The patient was seen and evaluated at bedside on the medical floor. Currently, he is doing well with no other complaints. He is scheduled for later today to have cystoscopy with possible stone retrieval or lithotripsy and possibly stent placement. REVIEW OF SYSTEMS: Pertinent positives: Left flank pain. Pertinent negatives: Denies any chest pain, palpitation, nausea, vomiting, diarrhea, dysuria, hematuria, frequency, urgency, lightheadedness, dizziness, abdominal pain, headaches, shortness of breath, cough, congestion, fever, or any other complaints. The rest of 14-point review of systems have been reviewed with the patient and are negative. ALLERGIES: HOME MEDICATIONS: 1. Aspirin 325 mg one tablet p.o. daily. 2. Lipitor 80 mg daily. 3. Metoprolol 12.5 mg daily. PAST MEDICAL HISTORY: Hypertension and history of nephrolithiasis. PAST SURGICAL HISTORY: Had cystoscopies in the past due to renal stones. FAMILY HISTORY: Hypertension and diabetes. SOCIAL HISTORY: No drugs. No alcohol. Does not smoke. Good social support. LAB FINDINGS: Show white count 10.6, hemoglobin is 15.2, hematocrit is 42, and platelets of 219. Chemistry; sodium 133, potassium 3.8, chloride 103, bicarb 27, anion gap of 10, BUN is 18, creatinine 0.97, glucose 87, calcium 9.7. Urinalysis showed evidence of rbc's greater than 50 and wbc's greater than 50. Microbiology, urine culture still pending. IMAGING STUDIES: CT of the abdomen and pelvis consistent with a 7 mm left ureteral stone resulting in mild hydroureteronephrosis. Bilateral nonobstructing subcentimeter renal calculi. PHYSICAL EXAMINATION: VITAL SIGNS: Temperature is 97.3, pulse 60, respiratory rate is 19, blood pressure 123/64, and pulse ox 94% on room air. GENERAL: No acute distress. Alert and oriented x3. Cooperative on examination. HEENT: Head is normocephalic and atraumatic. Eyes; pupils are equal, round, and reactive to light bilaterally. Extraocular movements are intact bilaterally. No evidence of erythema or exudates in the posterior pharynx. Has poor dentition. NECK: Supple. Good range of motion throughout. PULMONARY: Clear to auscultation bilaterally. No wheezing, no rales, no rhonchi, and no crackles appreciated. CARDIOVASCULAR: Positive S1, S2. No murmurs, rubs, or gallops appreciated. ABDOMEN: Soft, nondistended, and nontender to palpation. Bowel sounds present. MUSCULOSKELETAL: Strength is 5/5 throughout. No evidence of any muscle deficits on examination. No weakness appreciated. NEUROLOGICAL: Cranial nerves II through XII grossly intact. No evidence of any neurological deficits on exam. SKIN: Intact. Warm to touch. Good cap refill. PSYCHIATRIC: Normal affect and mood. EXTREMITIES: No edema. Good range of motion throughout. IMPRESSION: 1. Left flank pain, found to have a 7 mm obstructing distal ureteral stone with mild hydronephrosis. 2. Hypertension. 3. Chronic pain. PLAN: At this time, Urology consulted and scheduled for cystoscopy for possible stone retrieval/lithotripsy. Continue with IV antibiotics. Pain control with Dilaudid. Monitor urine cultures. Resume same home medications. Once the procedure is done today, he can possibly be discharged tomorrow. We will continue to monitor very closely. Dr. Soriano will be available tomorrow, who is his primary care physician. MD JASMYN Blackwood/ZOILA /[id number]
[2019-01-14] VITALS: BP 116/70
[2019-01-14 05:46] LABS: BASOPHILS % 0.1 % (0.0-1.0); HEMATOCRIT 44.9 % (38.2-49.6); HEMOGLOBIN 15.5 g/dL (14.0-18.0); LYMPHOCYTES # (AUTO) 0.9 (1.0-3.2); LYMPHOCYTES % 7.9 % (18.0-39.1); MEAN CORPUSCULAR HEMOGLOBIN 34.8 pg (28-32); MEAN CORPUSCULAR HGB CONC 34.5 g/dL (31-35); MEAN CORPUSCULAR VOLUME 100.9 fL (81-99); MONOCYTES # (AUTO) 0.5 (0.2-0.8); NEUTROPHILS # (AUTO) 10.1 (2.1-6.9); NEUTROPHILS % 87.5 % (38.7-80.0); PLATELET COUNT 223 x10e3/uL (140-360); RED BLOOD COUNT 4.45 x10e6/uL (4.3-5.7); RED CELL DISTRIBUTION WIDTH 12.3 % (11.7-14.4)
[2019-01-14 06:04] LABS: ANION GAP 12.3 mmol/L (8-16); BLOOD UREA NITROGEN 14 mg/dL (7-26); BUN/CREATININE RATIO 18 (6-25); CALCIUM 9.6 mg/dL (8.4-10.2); CARBON DIOXIDE 25 mmol/L (22-29); CHLORIDE 101 mmol/L (98-107); CREATININE, SERUM 0.77 mg/dL (0.72-1.25); EST GLOMERULAR FILTRATION RATE > 60 ML/MIN (60-); GLUCOSE 112 mg/dL (74-118); POTASSIUM 4.3 mmol/L (3.5-5.1); SODIUM 134 mmol/L (136-145)
[2019-01-14] MEDS: HYDROMORPHONE 2MG/ML 2 MG/ML ML IV PRN (06:19)
[2019-01-14] MEDS: ONDANSETRON HCL INJ 2MG/ML 2ML 2 MG/ML VIAL IV PRN (06:20)
--- NOTE | 2019-01-14 07:01 | NUR ---
report given to day nurse. patient is resting comfortably in bed. bed is in lowest position and call griggs is within reach.
[2019-01-14 07:15] VITALS: BP 123/69
[2019-01-14] MEDS: CEFTRIAXONE SOD 1 GM/NS 50 ML 50 ML IV SCH (07:32)
[2019-01-14 07:43] VITALS: BP 123/69
[2019-01-14] MEDS ORDERED: GABAPENTIN300 MG PO (08:49)
[2019-01-14] MEDS ORDERED: MACROBID 100 M100 MG PO (08:57)
[2019-01-14] MEDS ORDERED: METOPROLOL TARTRATE 25 MG TAB PO SCH (09:00)
[2019-01-14] MEDS ORDERED: ULTRAM 50MG50 MG PO (09:00)
--- NOTE | 2019-01-14 09:50 | Discharge Summary ---
GAMBLING BROKER: Jon Anne MD FINAL DIAGNOSIS: Left 7 mm ureteral stone, status post cystoscopy with stone extraction. SUMMARY: A 63-year-old male came in with hematuria, left renal colic with 7 mm obstructive stone. The patient is stable. He is status post stone extraction. He is doing well. The patient will go home with Macrobid 1 tablet twice a day for 10 days. The patient is otherwise stable. Tramadol 50 mg 1 or 2 q.6 p.r.n. for pain and gabapentin 300 mg one tablet b.i.d. The patient is stable. Prescription was given by Dr. Anne. The patient will follow up with Dr. Jon Anne and myself as planned. MD NICHOLAS Dominguez/HODANL /[id number]
[2019-01-14] MEDS ORDERED: ONDANSETRON HCL 4 MG ORAL DISINTEGRATING TAB PO PRN (10:00)
--- NOTE | 2019-01-14 22:44 | Operative Report ---
DATE OF PROCEDURE: 01/13/2019 SURGEON: Jon Anne MD PREOPERATIVE DIAGNOSIS: Left ureteral calculi. POSTOPERATIVE DIAGNOSIS: Left ureteral calculi. OPERATION PERFORMED: Cystoscopy, retrograde pyelogram, rigid ureteroscopy, laser lithotripsy and stone extraction with placement of double-J. ANESTHESIOLOGIST: Staff. ANESTHESIA: General. FINDINGS: The patient has soft bulbar urethral stenosis, dilator over the scope. Prostate shows trilobar hyperplasia, grade 1-2 trabeculation with cellules on the bladder. Ureteral orifice is in normal position. The bladder was inspected with a 12 and 7-degree angle lens. DESCRIPTION OF PROCEDURE: With the patient under satisfactory general anesthesia, the patient was placed in the supine position on the operating table. Legs were placed on steroids. Genitalia was then prepped with Betadine soap and solution and draped in the usual manner. At this point, the 22-Stateless cystourethroscope was passed per urethra into the bladder. It was noted that he has a high-riding median bar of the prostate. At this point, the Dylan bridge with 7-degree angle lens was introduced. The extra stiff guidewire was introduced and it would not go by the stone. Therefore, a Glidewire was introduced through an open-ended catheter and that guidewire went by the stone all the way up to the kidney. At this point, the open-ended catheter was removed leaving the guidewire in place. The long semi-rigid ureteroscope was introduced per urethra into the bladder and up the ureter. The stone was visualized. Once the stone was visualized and the laser fiber was introduced through the working channel, multiple shocks were given to the stone at 2.5 galvan. At this point, once the stone was broken into multiple pieces using NGage Nitinol basket, several of the stone fragments were retrieved and sent here for pathological specimen. At this point, the Glidewire was removed and replaced by the extra stiff guidewire and a 6-Stateless [employer] double-J was introduced over the guidewire and coiled in the renal pelvis. Contrast media was injected retrograde. No extravasation was identified. X-rays were taken. At this point, the sleeve was used to disengage the pusher and leave the double-J in place with the string being taped to the patient's phallus. The patient was then taken to the recovery room in satisfactory condition. MD INGRID Snell/ZOILA /[id number] cc: Victoriano Soriano MD
== END 2019-01-14 10:08 | disposition home or self-care (01) ==
LOC: ER 17:47 → ERHOLD 20:13 → IMCU 01-13 01:13
PROVIDERS: ADMIT Internal Medicine; ATTEND Internal Medicine
DX: N13.6 Pyonephrosis (principal); R10.32 Left lower quadrant pain; I10 Essential (primary) hypertension; I25.10 Atherosclerotic heart disease of native coronary artery without angina pectoris; Z87.442 Personal history of urinary calculi; E78.5 Hyperlipidemia, unspecified; Z82.49 Family history of ischemic heart disease and other diseases of the circulatory system; Z84.1 Family history of disorders of kidney and ureter; G89.29 Other chronic pain; Z87.01 Personal history of pneumonia (recurrent); J44.9 Chronic obstructive pulmonary disease, unspecified; Z79.82 Long term (current) use of aspirin; N35.912 Unspecified bulbous urethral stricture, male; N40.0 Benign prostatic hyperplasia without lower urinary tract symptoms
CPT/HCPCS: 36415 ×2; 52353; 74176; 74420; 80048 ×2; 81001; 85025 ×2; 87086; 88300; 99284; C1758; C2625; G0378 ×3; J0690; J0696 ×3; J1100; J1170 ×2; J2001; J2250; J2405 ×3; J2704; J3490; Q9967; J7050